=== PATIENT | female | born 1990 | race Caucasian/White ===

== ENCOUNTER 2024-05-11 03:13 | Emergency (ER) | payer SELFPAY ==
[~2024-05-11] VITALS: Ht 160 cm; Wt 63.0 kg
[2024-05-11 03:16] VITALS: O2SAT 96
[2024-05-11] MEDS ORDERED: CLIN-116 MT (04:51)
[2024-05-11] MEDS ORDERED: HYDR-4001 MT (04:51)
[2024-05-11] MEDS: CLINDAMYCIN HCL 150MG CAPSULE PO ONE (05:21)
[2024-05-11] MEDS: HYDROCODONE/ACETAMINOPHEN 5/325MG TABLET PO ONE (05:27)
[2024-05-11 05:55] VITALS: BP 100/59; PULSE 63; RESP 17; TEMP 98.3
== END 2024-05-11 05:57 | disposition home or self-care (01) ==
LOC: ER 03:30
DX: L03.115 Cellulitis of right lower limb (principal); J45.909 Unspecified asthma, uncomplicated; Z88.0 Allergy status to penicillin
CPT/HCPCS: 99283